=== PATIENT | male | born 1960 | race Two or more races ===

== ENCOUNTER 2023-01-07 17:25 | Emergency (ER) | payer OTHER ==
[~2023-01-07] VITALS: Ht 170.2 cm; Wt 90.7 kg
[2023-01-07] MEDS ORDERED: ZYLOPRIM100 MG PO (19:06)
[2023-01-07] MEDS ORDERED: INDOMETHACIN75 MG PO (19:06)
== END 2023-01-07 19:21 | disposition home or self-care (01) ==
LOC: EDBD 17:25 → ER 17:25
DX: M10.031 Idiopathic gout, right wrist (principal)
CPT/HCPCS: 96372; 99283; J1885